=== PATIENT | female | born 1940 | race Caucasian/White ===

== ENCOUNTER → 2016-09-03 | Outpatient (CLI) | payer MEDICARE ==
[~2016-09-03] MED LIST: ARTIFICIAL TEAR15 ML OP; DIAZEPAM PO; FEOSOL PO; FERROUS SULFATE PO; HYDROCHLOROTH12.5 MG PO; LIALDA1.2 G PO; MUCINEX DM1 TAB.SR . PO; MULTI VITAMIN1 EACH PO; POTASSIUM CHLO10 MEQ PO; PREDNISONE PO; PRILOSEC20 M1 PO; TOPROL XL PO; VITAMIN C500 M1 PO; ZOCOR PO; [UNRECOGNIZED DRUG - REMARK]
--- NOTE | ~2016-09-03 | US6 ---
[facility] A Service of [facility] & [facility] RADIOLOGY TEXT RESULTS PATIENT: STEVE RAND LOCATION: [facility] : 40 UNIT #: [id number] AGE: [address]: Mckay Worrell MD SEX: F ORDER DR: [id number] [facility] [address] [facility] [place], [place] [address] [id number] O MR#: [id number] Acc #: [id number] NAME: STEVE RAND : 1940 SEX: F STUDY DATE/TIME: 09/03/2016 10:34 UNIT: [facility] ROOM: STUDY DESCRIPTION: US Abdominal Limited Attending Physician: Mckay Worrell M.D. Referring Physician: Mckay Worrell M.D. Ordering Physician: Mckay Worrell M.D. Primary Care Physician: Mckay Worrell M.D. MEDICAL IMAGING REPORT This report is preliminary unless electronic signature is present EXAM Right upper quadrant ultrasound HISTORY Elevated liver enzymes. FINDINGS Ultrasound examination of the right upper quadrant demonstrates diffusely increased hepatic parenchymal echotexture suggesting fatty infiltration of the liver. No hepatic mass is identified. No biliary ductal dilatation. Common bile duct measures 6 mm. Gallbladder is absent. No perihepatic fluid. Survey of the right kidney demonstrates no hydronephrosis. No renal mass. The partly visualized pancreatic body is unremarkable. The pancreatic head and tail are incompletely visualized. IMPRESSION Echogenic hepatic parenchyma suggesting fatty infiltration of the liver. No biliary dilatation. The gallbladder is absent. Dictated by... Charles Elias M.D. THIS IS AN ELECTRONICALLY VERIFIED REPORT Charles Elias M.D. at 09/04/2016 11:19 PM DFL/psc TD: 09/03/2016 20:15 JOB #: [id number] MEDICAL IMAGING REPORT Page 1 of 1 COPY
== END | disposition home or self-care (01) ==
LOC: CGUS 10:08
DX: R79.89 Other specified abnormal findings of blood chemistry (principal); R93.2 Abnormal findings on diagnostic imaging of liver and biliary tract
CPT/HCPCS: 76705